=== PATIENT | male | born 1955 | race Caucasian/White ===

== ENCOUNTER 2017-10-25 11:41 | Outpatient (CLI) | payer BC ==
[~2017-10-25] VITALS: Ht 170.2 cm; Wt 87.7 kg
--- NOTE | ~2017-10-25 | HEMODYNAMI ---
PATIENT:ALY SIMPSON MEDICAL RECORD: [id number] : 51 LOCATION:LAYNE QuinonezE15- ADMISSION DATE: 10/25/17 Generatedon:10/25/201716:50 Patient name: ALY SIMPSON Patient #: [id number] SSN: : 1955 Date of study: 10/25/2017 Page: Of Hemodynamic Procedure Report Patient Data Patient Demographics Procedure consent was obtained First Name: ALY Gender: Male Last Name: TATIANA : 1955 [facility] Initial: JYOTI Age: 62 year(s) Patient #: [id number] Race: Unknown Additional ID: [id number] Contact details [address]: [address] [place] [address] State: [place] City: [place] Zip code: [address] Admission Admission Data Admission Date: 10/25/2017 Admission Time: 14:41 Room #: D.E15 Procedure Procedure Types Cath Procedure Diagnostic Procedure [facility] w/Coron[facility] FFR/IVUS Intra-Coronary IVUS Initial PCI Procedure Coronary Stent Coronary Stent Initial Procedure Description Procedure Date Procedure Date: 10/25/2017 Procedure Start Time: 16:24 Procedure End Time: 16:42 Procedure Staff Name Function Mario Monsivais MD Performing Physician Yifan Gaston RT Monitor Jonathon Layne RN Nurse Cali Armenta RT Scrub Procedure Data Cath Procedure Fluoroscopy Diagnostic fluoroscopy Total fluoroscopy Time: 4.7 time: 4.7 min min Diagnostic fluoroscopy Total fluoroscopy dose: 605 dose: 605 mGy mGy Contrast Material Contrast Material Type Amount (ml) Isovue 300 93 Entry Location Entry Primary Successful Side Size Upsize Upsize Entry Closure Mcneal ccessful Closure Location (Fr) 1 (Fr) 2 (Fr) Remarks Device Remarks Radial Right 6 Fr Manual artery Short Compression Estimated blood loss: 10 ml Diagnostic catheters Device Type Used For End Catheter Placement DIAGNOSTIC [place] 110cm 5 Procedure Fr catheter ([id number]) Procedure Complications No complications Procedure Medications Medication Administration Route Dosage Oxygen etCO2 Nasal cannula 2 l/min Lidocaine 2% added to field 20 Heparin Flush Bag added to field 2 bags (1000units/500ml NS) 0.9% NaCl I.V. 100 ml/hr Radial Cocktail I.A. 1 syringe (Verapomil 2mg/Nitro 400mcg/Heparin 1500units) Versed I.V. 2 mg Fentanyl I.V. 50 mcg Versed I.V. 1 mg Fentanyl I.V. 50 mcg Lopressor I.V. 5 mg Heparin Bolus I.V. 4000 units Integrilin (Bolus I.V. 7.9 ml 2mg/ml) Morphine I.V. 4 mg Versed I.V. 1 mg Hemodynamics Rest Heart Rate: 89 (bpm) Snapshots Pre Cath Intra NCS Post Cath Vital Signs Time Heart Resp SPO2 etCO2 NIBP (mmHg) Rhythm Pain Sedation Rate (ipm) (%) (mmHg) Status Level (bpm) 16:16:30 79 14 98 30.7 161/83(127) NSR 0 (11) 10(A) , No pain 16:21:16 87 25 97 29.2 146/86(110) NSR 0 (11) 10(A) , No pain 16:25:59 50 13 96 20.9 93/70(79) NSR 0 (11) 10(A) , No pain 16:31:54 80 14 95 26.9 127/72(90) NSR 0 (11) 9(A) , No pain 16:36:36 82 14 95 31.5 132/71(106) NSR 0 (11) 9(A) , No pain 16:41:21 71 19 98 32.9 140/74(99) NSR 7 (11) 10(A) , Very intense Medications Time Medication Route Dose Verified Delivered Reason Not es Effectiveness by by 16:14:53 Oxygen etCO2 2 l/min Mario Holt for local Nasal Yodit Layne RN anesthetic cannula 16:15:00 Lidocaine 2% added 20ml Mario Martin for local to vial Yodit Monsivais MD anesthetic field 16:15:07 Heparin Flush added 2 bags Mario Martin used for Bag to Yodit Monsivais MD procedure (1000units/500ml field NS) 16:15:15 0.9% NaCl I.V. 100 Mario Buffie Per physician ml/hr Yodit Layne RN 16:15:26 Radial Cocktail I.A. 1 Mario Mario for (Verapomil syringe Tauyoseph Monsivais MD vasodilation 2mg/Nitro 400mcg/Heparin 1500units) 16:22:16 Versed I.V. 2 mg Mario Buffie for sedation Yodit Layne RN 16:22:22 Fentanyl I.V. 50 mcg Mario Holt for sedation Yodit Layne RN 16:24:03 Versed I.V. 1 mg Mario Buffie for sedation Yodit Layne RN 16:24:07 Fentanyl I.V. 50 mcg Mario Buffie for sedation Yodit Layne RN 16:28:41 Versed I.V. 1 mg Mario Buffie for sedation Yodit Layne RN 16:30:28 Lopressor I.V. 5 mg Mario Buffie Per physician Yodit Layne RN 16:31:15 Heparin Bolus I.V. 4000 Mario Buffie for brianda ified units Yodit Layne RN anticoagulation with dr monsivais 16:33:00 Integrilin I.V. 7.9 ml Mario Holt for Was amrit (Bolus 2mg/ml) Yodit Layne RN antiplatelet 2.1 ml therapy of vial 16:43:02 Morphine I.V. 4 mg Mario Holt for chest pain Yodit Layne RN Procedure Log Time Note 15:30:09 Cali Armenta RT(R) sent for patient. Start room use. 15:35:11 Time tracking: Regular hours (M-F 7:00 - 5:00) 15:35:14 Plan of Care:Hemodynamics will remain stable., Cardiac rhythm will remain stable., Comfort level will be maintained., Respiratory function will remain adequate., Patient/ family verbilizes understanding of procedure., Procedure tolerated without complication., Recovers from procedure without complications.. 16:07:37 Patient received from Pre/Post Procedure Room to CCL 1 Alert and oriented. Tansferred to table in Supine position. 16:07:38 Warm blankets applied, and sam hugger turned on for patient comfort. 16:07:39 Correct patient and procedure confirmed by team. 16:07:40 Signed procedure consent form obtained from patient. 16:07:40 ECG and BP/O2 sat monitors applied to patient. 16:14:53 Oxygen 2 l/min etCO2 Nasal cannula was administered by Jonathon Layne RN; for local anesthetic; 16:15:00 Lidocaine 2% 20ml vial added to field was administered by Mario Monsivais MD; for local anesthetic; 16:15:07 Heparin Flush Bag (1000units/500ml NS) 2 bags added to field was administered by Mario Monsivais MD; used for procedure; 16:15:15 0.9% NaCl 100 ml/hr I.V. was administered by Jonathon Layne RN; Per physician; 16:15:26 Radial Cocktail (Verapomil 2mg/Nitro 400mcg/Heparin 1500units) 1 syringe I.A. was administered by Mario Monsivais MD; for vasodilation; 16:15:29 Vital chart was started 16:18:42 Baseline sample Acquired. 16:19:23 Rhythm: sinus rhythm 16:19:26 Full Disclosure recording started 16:19:29 H&P Date Dictated: 10/25/2017 ER History on chart.. 16:19:30 Pre-procedure instructions explained to patient. 16:19:31 Pre-op teaching completed and patient verbalized understanding. 16:19:33 Family in patients room. 16:19:34 Patient NPO since Midnight. 16:19:36 Is the patient allergic to Iodine/contrast media? No. 16:19:38 Is patient on blood thinner?Yes 16:19:40 ACC The patient was administered the following blood thiners within the last 24 hours: ACCPlavix 16:19:43 Patient diabetic? No. 16:19:46 Previous problem with sedation/anesthesia? No ? 16:19:47 Snore? Yes 16:19:48 Sleep apnea? Yes 16:19:49 Deviated septum? No 16:19:50 Opens mouth fully? Yes 16:19:50 Sticks out tongue? Yes 16:19:52 Airway obstruction? No ? 16:19:54 Dentures? No ? 16:20:02 Pre procedure: right dorsailis pedis pulse 1+ Palpable, but thready & weak; easily obliterated 16:20:05 Modified Ryan's test Ulnar < 7 seconds 16:20:06 Patient pain scale 0/10 ?. 16:20:10 IV patent on arrival in right forearm with 0.9% NaCl at [facility]. 16:20:12 Lab results completed and on chart. 16:20:28 Right Radial & Right Groin area was prepped with chlora-prep and draped in sterile fashion 16:20:30 Alarms reviewed by R. N. 16:20:30 Sharps counted by scrub and verified by R.N. 16:20:37 --------ALL STOP TIME OUT------ 16:20:38 Final Timeout: patient, procedure, and site verified with staff and physician. All members of the team are in agreement. 16:20:40 Right Radial & Right Groin site verified by team. 16:20:45 Physical assessment completed. ASA score P 2 - A patient with mild systemic disease as per Mario Monsivais MD. 16:20:48 Sedation plan: IV Moderate Sedation Medication:Versed, Fentanyl 16:22:16 Versed 2 mg I.V. was administered by Jonathon Layne RN; for sedation; 16:22:22 Fentanyl 50 mcg I.V. was administered by Jonathon Layne RN; for sedation; 16:24:03 Versed 1 mg I.V. was administered by Jonathon Layne RN; for sedation; 16:24:07 Fentanyl 50 mcg I.V. was administered by Jonathon Layne RN; for sedation; 16:24:10 Procedure started. 16:24:15 Local anesthetic to right radial artery with Lidocaine 2% by Mario Monsivais MD.INITIAL ACCESS ONLY 16:24:21 Use device set Radial Dx or PCI 16:24:23 ACIST Manifold (19292) opened to sterile field. 16:24:23 Tegaderm 4 x 4 (1626W) opened to sterile field. 16:24:24 ACIST Hand Control (99296) opened to sterile field. 16:24:25 ACIST Syringe (10361) opened to sterile field. 16:24:26 Medline Cath Pack ([id number]) opened to sterile field. 16:24:26 Bag Decanter (2002) opened to sterile field. 16:24:26 DIAGNOSTIC WIRE .035 260cm J wire (976079) opened to sterile field. 16:24:27 MBrace Wrist Support (106423884) opened to sterile field. 16:24:28 SHEATH 6Fr Prelude Radial ([id number]) opened to sterile field. 16:24:38 A 6 Fr Short sheath was inserted into the Right Radial artery 16:25:00 A DIAGNOSTIC [place]iqu[place] 110cm 5 Fr catheter (864519) was advanced over the wire and used for Procedure. 16::27 LV angiography performed. 16::28 LV gram done using FERRER 16:26:33 EF : 60 % 16::43 Injector settings: Ml/sec: 7, Volume: 15, 16:26:49 RCA angiography performed. 16::32 Catheter exchanged over wire. 16::40 Use device set YODIT PCI 16:27:50 GUIDE 6FR EBU 3.5 catheter ([id number]) opened to sterile field. 16:28:09 6 Fr EBU 3.5 guide catheter was inserted over the wire 16:28:41 Versed 1 mg I.V. was administered by Jonathon Layne RN; for sedation; 16:29:09 LCA angiography performed. 16:29:39 INFLATOR Merit BasixCompak (CI2909) opened to sterile field. 16:29:45 CHOICE PT Extra Support 182cm wire ([id number]) opened to sterile field. 16:30:03 [place] Eagleye IVUS Catheter (82882S) opened to sterile field. 16:30:28 Lopressor 5 mg I.V. was administered by Jonathon Layne RN; Per physician; 16:30:45 Choice PT XS wire advanced. 16:31:15 Heparin Bolus 4000 units I.V. was administered by Jonathon Layne RN; for anticoagulation; verified with dr monsivais 16:32:33 Wire advanced across lesion. 16:32:48 IVUS catheter advanced over wire. 16:33:00 Integrilin (Bolus 2mg/ml) 7.9 ml I.V. was administered by Jonathon Layne RN; for antiplatelet therapy; Wasted 2.1 ml of vial 16:35:12 IVUS pass to LAD lesion performed. 16:35:13 IVUS catheter removed over wire. 16:35:23 Place stent Inflation Number: 1 A CLIVE RX 3.5 x 22 stent ([id number]) was prepped and advanced across the Prox LAD. The stent was deployed at 17 KALEB for 0:10 (min:sec). 16:36:04 TR BAND Standard ([id number]) opened to sterile field. 16:37:17 Stent catheter was removed intact over wire. 16:37:19 Wire removed. 16:37:20 Guide catheter removed. 16:37:37 Sheath removed intact; hemostasis achieved with Manual Compression to the Right Radial artery. 16:37:39 Procedure ended.(Physican Out) 16:39:29 Fluoroscopy time 04.70 minutes. 16:39:32 Fluoroscopy dose: 605 mGy 16:39:32 Flurop Dose total: 605 16:39:37 Contrast amount:Isovue 300 93ml. 16:39:38 Sharps counted by scrub and verified by R.N. 16:39:40 TR band inflated with 13cc of air. 16:39:41 Insertion/operative site no bleeding no hematoma. 16:39:43 Post Procedure Pulses reassessed and unchanged 16:39:46 Post-procedure physical assessment completed. ASA score P 2 - A patient with mild systemic disease as per Mario Monsivais MD. 16:39:48 Post procedure rhythm: unchanged. 16:39:51 Estimated blood loss: 10 ml 16:39:53 Post procedure instruction explained to patient.Patient verbalizes understanding. 16:39:53 Patient needs reinforcement of post procedure teaching. 16:40:04 Procedure type changed to Cath procedure, Diagnostic procedure, LHC, LHC w/Coronaries, FFR/IVUS, Intra-Coronary IVUS Initial, PCI procedure, Coronary Stent, Coronary Stent Initial 16:40:11 Procedure and supply charges have been captured, reviewed, submitted and are correct. 16:40:13 Procedure Complication : No complications 16:41:51 Vital chart was stopped 16:41:52 See physician's report for complete and final results. 16:41:57 Report given to PCU. 16:42:00 Patient transfered to PCU with Bed. 16:42:03 Procedure ended. 16:42:03 Full Disclosure recording stopped 16:43:02 Morphine 4 mg I.V. was administered by Jonathon Layne RN; for chest pain; 16:44:10 End room use (Document Last) Intervention Summary Intervention Notes Time ActionType Lesion and Equipment Used Action# Pressure Duration Attributes 16:35:[address] Place stent Prox LAD CLIVE RX 3.5 x 1 17 00:10 22 stent ([id number]) Device Usage Item Name Manufacture Quantity Catalog Number Hospital Part Current Minimal Lot# / Charge Number Stock Stock Serial# Code ACIST Manifold Acist 1 74229 [id number] [id number] [id number] 5 (21708) Medical [employer] Inc Tegaderm 4 x 4 3M 1 1626W 853325 824144 115746 5 (1626W) ACIST Hand Acist 1 37619 667912 819293 888200 5 Control (24574) [employer] Inc ACIST Syringe Acist 1 95013 744735 828733 083669 20 (64873) Medical Systems Inc Medline Cath Cardinal 1 [id number] 423082 84854 367242 5 Pack Health ([id number]) Bag Decanter Microtek 1 2001S 093229 63481 668496 5 (2001S) Medical Inc. DIAGNOSTIC WIRE St Butch 1 798512 800455 284462 441617 30 .035 260cm J wire (183802) MBrace Wrist Advanced 1 140-0250-00 806263 82882 609538 5 Support Vascular ([id number]) Dynamics SHEATH 6Fr Merit 1 [id number] 152069 466587 973150 5 Prelude Radial Medical ([id number]) GUIDE 6FR EBU Medtronic 1 [id number] 185886 21281 025537 3 3.5 catheter ([id number]) INFLATOR Merit Merit 1 OR0691 564479 296438 944692 15 AMGas (JW8121) CHOICE PT Extra Hatch 1 [id number] 097456 297376 744343 5 Support 182cm Scientific wire ([id number]) Norwalk Norwalk 1 [id number] 034401 609843 215673 8 [place] Eagleye IVUS Catheter (40478I) CLIVE RX 3.5 x Medtronic 1 [id number] 955963 6107158 812878 5 [id number] 22 stent ([id number]) TR BAND Terumo 1 [id number] 931084 448620 742550 40 Standard ([id number]) DIAGNOSTIC Terumo 1 40-2428 805644 923812 875919 5 Piqua 110cm 5 Fr catheter (014335) Signature Audit [place] Stage Time Signature Unsigned Intra-Procedure 10/25/2017 Yifan Gaston 4:50:15 PM RT(R) Signatures Monitor : Yifan Gaston RT Signature : Date : Time : [address] [place] [address]
--- NOTE | ~2017-10-25 | OP ---
PATIENT NAME: ALY SIMPSON MEDICAL RECORD: [id number] :51 LOCATION:LITO QuinonezCL02 ADMISSION DATE:10/25/17 SURGEON: ANDERS SEO MD DATE OF OPERATION: 10/26/2017 PROCEDURES: 1. PTCA stent left circumflex. 2. Intravascular ultrasound. 3. Selective coronary angiography. INDICATION: Angina and coronary artery disease. PROCEDURE IN DETAIL: After informed consent was obtained and after a detailed description of the risks, benefits as well as alternative therapies, the patient elected to proceed with angiogram and angioplasty. The right femoral area was prepped and draped in normal sterile fashion. The right femoral artery was cannulated via modified Seldinger technique with placement of a 7-Tuvaluan sheath. All catheters exchanged through this sheath. FINDINGS: The left circumflex has greater than 70% stenosis confirmed by intravascular ultrasound. This is all through the mid vessel. This was addressed with a 3.0 x 12 and 2.5 x 12 both [place] stents. Result was 0% residual stenosis. OVERALL IMPRESSION: Successful percutaneous transluminal coronary angioplasty stent of the left circumflex going from greater than 70% initial stenosis to 0% residual. TRANSINT:[id number] Voice Confirmation ID: [id number] DOCUMENT ID: [id number] ANDERS SEO MD at 1752 CC: [id number] DICTATION DATE: 10/26/17923 MILK TREATER: 10/26/17 1149 DIS IN 10/26/17 [facility] [address] [place] [address]
--- NOTE | ~2017-10-25 | CN ---
PATIENT NAME:ALY SIMPSON MEDICAL RECORD: [id number] : 51 LOCATION:MIHAICL02 ADMIT DATE: 10/25/17 ACCOUNT: [id number] CONSULTING PHYSICIAN: ANDERS SEO MD REFERRING PHYSICIAN: NEDA ARGUELLO MD DATE OF CONSULTATION: 10/25/2017 DIAGNOSES: 1. Chest pain compatible with angina. 2. Shortness of breath. 3. Hypertension. HISTORY: This is a gentleman with no previous history of ischemic heart disease, who, during his daily walks, has been having chest tightness as well as shortness of breath. This has progressed over the past month to the point now where he cannot do his walks with any minimal exertion. He gets chest tightness, very typical anginal tightness with radiation to his jaw and his arms. REVIEW OF SYSTEMS: The patient reports easy bruising but reports no swollen glands. The patient reports no fever, no night sweats, no significant weight gain, no significant weight loss. No significant exercise tolerance. The patient reports no dry eyes, no irritation, no vision change. Patient reports no difficulty hearing and no ear pain. Patient reports no frequent nose bleeds or nose and sinus problems. Patient reports on arm pain on exertion. No shortness of breath while lying down. No history of heart murmur. Patient reports no cough, no wheezing or coughing up blood. Patient reports no abdominal pain, no vomiting. Normal appetite. No diarrhea and not vomiting blood. No nausea and no constipation. Patient reports no incontinence. No difficulty urinating. No hematuria. No increased frequency. Patient reports no muscle aches. No weakness, no arthralgias, no back pain. No swelling of the extremities. Patient reports no abnormal mole, no jaundice, no rashes. Reports no loss of consciousness. No weakness and no numbness. No seizures, dizziness, or headaches. The patient reports no depression, no sleep disturbance, feeling safe in a relationship and no alcohol abuse. Patient reports on fatigue. Reports no runny nose or sinus pressure. No itching, no hives, and no frequent sneezing. PHYSICAL EXAMINATION: GENERAL APPEARANCE: Well-nourished, well-developed, appears stated age. Level of distress, comfortable. PSYCHIATRIC: Mental status, alert, normal affect. Orientation, oriented to time, place and person. EYES: Lids and conjunctiva, noninjected. No discharge, no pallor. ENT: Lips, teeth, gums, normal dentition. Oropharynx, no cyanosis, no pallor. NECK: Carotid arteries, bilateral normal upstroke, no bruits, no thrills. JUGULAR VEINS: No jugular venous pressure or distention. CERVICAL LYMPH NODES: Nontender, nonenlarged. THYROID: Not enlarged. Nontender. No nodules. LUNGS: Respiratory effort, unlabored. CHEST: Normal curvature. No thoracic deformity. No chest wall tenderness. Percussion, resonant. Auscultation, clear. No wheezes, no rales, no rhonchi. CARDIOVASCULAR: Precordial exam, nondisplaced. No heaves or pericardial thrills. Rate and rhythm, regular. Heart sounds, normal S1, normal S2. No S3, no gallop, no rub. Systolic murmur, not heard. Diastolic murmur, not heard. CONSULT REPORT [id number] ALY SIMPSON JYOTI EXTREMITIES: No cyanosis, no edema. Peripheral pulses, full and equal in all extremities, except as noted. No bruits appreciated. ABDOMEN: Soft, nondistended. Normal aorta. No bruit. Nontender. No masses. Liver, nontender, no hepatomegaly. Spleen, nontender, no splenomegaly. MUSCULOSKELETAL: No joint tenderness. No joint swelling. No erythema. NEUROLOGICAL: Normal gait, normal strength, normal tone. SKIN: Warm and dry. OVERALL IMPRESSION: Worsening anginal symptomatology, most likely has ischemic heart disease. We will proceed with coronary angiography. Further care depends upon findings of the angiography. TRANSINT:[id number] Voice Confirmation ID: [id number] DOCUMENT ID: [id number] ANDERS SEO MD at 1752 CC: [id number] DICTATION DATE: 10/25/17 1510 HOUSEKEEPER NANNY: 10/25/17 1825 DIS IN 10/26/17 [facility] [id number] [place] [address]
--- NOTE | ~2017-10-25 | OP ---
PATIENT NAME: ALY SIMPSON MEDICAL RECORD: [id number] :51 LOCATION:LITO QuinonezCL02 ADMISSION DATE:10/25/17 SURGEON: ANDERS SEO MD DATE OF OPERATION: 10/25/2017 PROCEDURES: 1. PTCA stent to LAD. 2. Intravascular ultrasound. 3. Left heart catheterization. 4. Selective coronary angiography. 5. Left ventriculogram. INDICATION: Angina and coronary artery disease. PROCEDURE PERFORMED: After informed consent was obtained and after a detailed description of risks, benefits as well as alternative therapies, the patient elected to proceed with angiogram and angioplasty. The right radial area was prepped and draped in normal sterile fashion. Right radial artery was cannulated via modified Seldinger technique with placement of 6-Romansh sheath. All catheters exchanged through this sheath. FINDINGS: The ventriculogram was performed in standard 30-degree FERRER view, reveals good cardiac wall motion throughout all segments. Overall ejection fraction estimated 60%. SELECTIVE CORONARY ANGIOGRAPHY: 1. Left main is with no significant angiographic disease. 2. Left anterior descending has a long area of 80% stenosis confirmed by intravascular ultrasound in the proximal vessel. 3. The left circumflex has 80% stenosis in the mid vessel. 4. Right coronary has 80% stenosis in mid vessel. PTCA STENT OF THE LAD: The stent used was a 3.5 x 22-mm Joby. Result was 0% residual stenosis. OVERALL IMPRESSION: Successful percutaneous transluminal coronary angioplasty stent of the left anterior descending from 80% initial stenosis to 0% residual. PLAN: PTCA stent of the RCA and left circumflex in the near future. TRANSINT:[id number] Voice Confirmation ID: [id number] DOCUMENT ID: [id number] ANDERS SEO MD at 1759 CC: NEDA ARGUELLO [id number] DICTATION DATE: 10/25/17 1642 CATTLE SORTER: 10/25/171922 DIS IN 10/26/17 [facility] [address] [place] [id number]
--- NOTE | ~2017-10-25 | HEMODYNAMI ---
PATIENT:ALY SIMPSON MEDICAL RECORD: [id number] : 51 LOC[id number] ADMISSION DATE: 10/25/17 Generatedon:10/26/20179:25 Patient name: ALY SIMPSON Patient #: [id number] SSN: : 1955 Date of study: 10/26/2017 Page: Of Hemodynamic Procedure Report Patient Data Patient Demographics Procedure consent was obtained First Name: ALY Gender: Male Last Name: TATIANA : 1955 [facility] Initial: JYOTI Age: 62 year(s) Patient #: [id number] Race: Unknown Additional ID: [id number] Contact details Address: [facility] [address] State: [place] City: [place] Zip code: [address] Admission Admission Data Admission Date: 10/25/2017 Admission Time: 14:41 Room #: D.2131 Height (in.): 66.93 BSA: 1.98 (m2) Height (cm.): 170 BMI: 30.1 (kg/m2) Weight (lbs.): 191.8 Weight (kg.): 87 Lab Results Lab Result Date: 10/26/2017 Lab Result Time: 0:00 Biochemistry Name Units Result Min Max BUN mg/dl 14 --(--*-)-- 7 18 Creatinine mg/dl 1.2 --(---*)-- 0.6 1.3 CBC Name Units Result Min Max Hemoglobin g/dl 17.1 --(---*)-- 13.5 17.5 Procedure Procedure Types Cath Procedure Diagnostic Procedure FFR/IVUS Intra-Coronary IVUS Initial PCI Procedure Coronary Stent Coronary Stent Initial Procedure Description Procedure Date Procedure Date: 10/26/2017 Procedure Start Time: 8:54 Procedure End Time: 9:22 Procedure Staff Name Function Mario Monsivais MD Performing Physician Gt Alvarado RN Department Assistant Denise Anderson RT Monitor Gt Alvarado RN Nurse Gonzalo Núñez RT Scrub Procedure Data Cath Procedure Fluoroscopy Diagnostic fluoroscopy Total fluoroscopy Time: 11 time: 11 min min Diagnostic fluoroscopy Total fluoroscopy dose: 606 dose: 606 mGy mGy Contrast Material Contrast Material Type Amount (ml) Isovue 300 93 Entry Location Entry Primary Successful Side Size Upsize Upsize Entry Closure Succes sful Closure Location (Fr) 1 (Fr) 2 (Fr) Remarks Device Remarks Femoral Right 7 Fr Exoseal artery Short Estimated blood loss: 10 ml Procedure Complications No complications Procedure Medications Medication Administration Route Dosage Oxygen etCO2 Nasal cannula 2 l/min Heparin Flush Bag added to field 2 bags (1000units/500ml NS) 0.9% NaCl I.V. 100 ml/hr Plavix P.O. 75 mg Fentanyl I.V. 50 mcg Versed I.V. 1 mg Fentanyl I.V. 50 mcg Versed I.V. 1 mg Heparin Bolus I.V. 4000 units Fentanyl I.V. 50 mcg Fentanyl I.V. 50 mcg Hemodynamics Rest BSA: 1.98 (m2) HGB: 17.1 (g/dl) O2 Consumption: Estimated: 247.65 (ml/min) O2 Co nsumption indexed: Estimated:125.08 (ml/min/m) Heart Rate: 92 (bpm) Snapshots Pre Cath Intra NCS Post Cath Vital Signs Time Heart Resp SPO2 etCO2 NIBP (mmHg) Rhythm Pain Sedation Rate (ipm) (%) (mmHg) Status Level (bpm) 8:41:24 92 17 95 27 147/64(119) NSR 0 (11) 10(A) , No pain 8:45:49 91 16 96 30 145/82(111) NSR 0 (11) 10(A) , No pain 8:50:13 97 17 96 33 146/84(112) NSR 0 (11) 9(A) , No pain 8:54:37 87 16 96 39.8 139/77(106) NSR 0 (11) 9(A) , No pain 8:58:53 83 16 95 0 122/78(97) NSR 0 (11) 9(A) , No pain 9:03:11 84 17 95 0 124/74(98) NSR 0 (11) 9(A) , No pain 9:07:25 91 16 96 12.7 125/87(115) NSR 0 (11) 9(A) , No pain 9:11:39 98 17 94 36.8 137/86(109) NSR 0 (11) 9(A) , No pain 9:16:01 99 16 94 39.8 135/81(103) NSR 0 (11) 9(A) , No pain 9:20:21 99 16 94 36.7 145/81(108) NSR 0 (11) 9(A) , No pain Medications Time Medication Route Dose Verified Delivered Reason Notes Effectiveness by by 8:47:48 Oxygen etCO2 2 Mario Kayy Per physician Nasal l/min Yodit Alvarado RN cannula 8:47:55 Heparin Flush added 2 Mario Del Real used for Bag to bags Yodit Alvarado RN procedure (1000units/500ml field NS) 8:48:08 0.9% NaCl I.V. 100 Mario Kayy Per physician ml/hr Yodit Alvarado RN 8:48:18 Plavix P.O. 75 mg Mario Del Real for Yodit Alvarado RN antiplatelet therapy 8:48:26 Fentanyl I.V. 50 Mario Gt for sedation mcg Yodit Alvarado RN 8:48:33 Versed I.V. 1 mg Mario Del Real for sedation Yodit Alvarado RN 8:55:46 Fentanyl I.V. 50 Mario Gt for sedation mcg Yodit Alvarado RN 8:55:51 Versed I.V. 1 mg Mario Gt for sedation Yodit Alvarado RN 8:56:12 Heparin Bolus I.V. 4000 Mario Del Real for units Yodit Alvarado RN anticoagulation 9:08:38 Fentanyl I.V. 50 Mario Gt for sedation mcg Yodit Alvarado RN 9:12:41 Fentanyl I.V. 50 Mario Gt for sedation [facility] Yodit Alvarado RN Procedure Log Time Note 8:20:58 Gt Alvarado RN sent for patient. Start room use. 8:22:39 Patient Height : 66.93 inches 8:22:43 Patient Weight : 191.8 lbs 8:23:21 Lab Result : BUN 14 mg/dl 8:23:21 Lab Result : Hemoglobin 17.1 g/dl 8:23:21 Lab Result : Creatinine 1.2 mg/dl 8:23:56 Diagnostic Cath status Elective 8:23:59 Time tracking: Regular hours (M-F 7:00 - 5:00) 8:24:05 Plan of Care:Hemodynamics will remain stable., Cardiac rhythm will remain stable., Comfort level will be maintained., Respiratory function will remain adequate., Patient/ family verbilizes understanding of procedure., Procedure tolerated without complication., Recovers from procedure without complications.. 8:32:35 Patient received from Med II to CCL 3 Alert and oriented. Tansferred to table in Supine position. 8:32:37 Warm blankets applied, and sam hugger turned on for patient comfort. 8:32:38 Correct patient and procedure confirmed by team. 8:32:39 Signed procedure consent form obtained from patient. 8:32:40 ECG and BP/O2 sat monitors applied to patient. 8:40:03 Vital chart was started 8:40:04 Baseline sample Acquired. 8:40:11 Rhythm: sinus rhythm 8:40:14 Full Disclosure recording started 8:40:23 H&P Date Dictated: 10/25/2017 Within 30 days and on chart.. 8:40:26 Pre-procedure instructions explained to patient. 8:40:28 Family in waiting room. 8:40:31 Patient NPO since Midnight. 8:40:57 Is the patient allergic to Iodine/contrast media? No. 8:45:14 Is patient on blood thinner?Yes 8:45:18 ACC The patient was administered the following blood thiners within the last 24 hours: ACCPlavix 8:45:20 Patient diabetic? No. 8:45:23 Snore? Yes 8:45:25 Sleep apnea? Yes 8:45:31 Dentures? No ? 8:45:36 Patient pain scale 0/10 ?. 8:45:43 IV patent on arrival in right antecubital with 0.9% NaCl at [facility]. 8:45:53 Lab results completed and on chart. 8:46:01 Right groin area was prepped with chlora-prep and draped in sterile fashion 8:46:02 Alarms reviewed by R. N. 8:46:02 Sharps counted by scrub and verified by R.N. 8:46:04 Physician paged 8:46:05 Physician arrived 8:46:06 --------ALL STOP TIME OUT------ 8:46:07 Final Timeout: patient, procedure, and site verified with staff and physician. All members of the team are in agreement. 8:46:09 Right groin site verified by team. 8:46:13 Physical assessment completed. ASA score P 2 - A patient with mild systemic disease as per Mario Monsivais MD. 8:46:17 Sedation plan: IV Moderate Sedation Medication:Versed, Fentanyl 8:46:21 Use device set Femoral Dx 8:46:23 ACIST Syringe (49909) opened to sterile field. 8:46:23 Bag Decanter (2002S) opened to sterile field. 8:46:24 Medline Cath Pack ([id number]) opened to sterile field. 8:46:24 DIAGNOSTIC WIRE .035 260cm J wire (655149) opened to sterile field. 8:46:25 ACIST Hand Control (79142) opened to sterile field. 8:46:26 ACIST Manifold (37422) opened to sterile field. 8:46:26 DIAGNOSTIC Multipack 5Fr catheter set (QM6568) opened to sterile field. 8:46:29 Tegaderm 4 x 4 (1626W) opened to sterile field. 8:46:31 PERCUTANEOUS ENTRY 19GA needle opened to sterile field. 8:46:45 SHEATH 7FR Amelia (AKR337) opened to sterile field. 8:46:53 INFLATOR Merit BasixCompak (HK1061) opened to sterile field. 8:47:48 Oxygen 2 l/min etCO2 Nasal cannula was administered by Gt Alvarado RN; Per physician; 8:47:55 Heparin Flush Bag (1000units/500ml NS) 2 bags added to field was administered by Gt Alvarado RN; used for procedure; 8:48:08 0.9% NaCl 100 ml/hr I.V. was administered by Gt Alvarado RN; Per physician; 8:48:18 Plavix 75 mg P.O. was administered by Gt Alvarado RN; for antiplatelet therapy; 8:48:26 Fentanyl 50 mcg I.V. was administered by Gt Alvarado RN; for sedation; 8:48:33 Versed 1 mg I.V. was administered by Gt Alvarado RN; for sedation; 8:51:28 Zero performed for pressure channel P1 8:52:28 CHOICE PT Extra Support 182cm wire ([id number]) opened to sterile field. 8:52:29 Garrard [employer] IVUS Catheter (57021Z) opened to sterile field. 8:52:30 GUIDE 6FR EBU 3.5 catheter ([id number]) opened to sterile field. 8:52:31 GUIDE 7FR AR 2.0 SH catheter ([id number]) opened to sterile field. 8:52:57 Procedure started. 8:54:17 Local anesthetic to right femoral artery with Lidocaine 2% by Mario Monsivais MD.INITIAL ACCESS ONLY 8:54:29 A 7 Fr Short sheath was inserted into the Right Femoral artery 8:55:00 7 Fr EBU guide catheter was inserted over the wire 8:55:08 6 Fr EBU 3.5 guide catheter was inserted over the wire 8:55:18 choice pt wire advanced. 8:55:46 Fentanyl 50 mcg I.V. was administered by Gt Alvarado RN; for sedation; 8:55:51 Versed 1 mg I.V. was administered by Gt Alvarado RN; for sedation; 8:56:12 Heparin Bolus 4000 units I.V. was administered by Gt Alvarado RN; for anticoagulation; 9:02:00 Unable to cross 9:02:21 GUIDE 6FR EBU 4.0 guide catheter ([id number]) opened to sterile field. 9:02:32 6 Fr EBU4 guide catheter was inserted over the wire 9:02:51 whis[per wire advanced. 9:03:00 WHISPER 300cm guide wire ([id number]) opened to sterile field. 9:03:21 SuperCross Microcatheter 90 angle (5304) opened to sterile field. 9:03:37 supercross wire advanced. 9:03:45 whisper wire advanced. 9:08:38 Fentanyl 50 mcg I.V. was administered by Gt Alvarado RN; for sedation; 9:10:25 IVUS catheter advanced over wire. 9:12:37 IVUS catheter removed over wire. 9:12:41 Fentanyl 50 mcg I.V. was administered by Gt Alvarado RN; for sedation; 9:15:23 Place stent Inflation Number: 1 A CLIVE RX 3.0 x 12 stent ([id number]) was prepped and advanced across the Mid CX. The stent was deployed at 13 KALEB for 0:07 (min:sec). 9:16:01 Stent catheter was removed intact over wire. 9:18:24 Place stent Inflation Number: 1 A CLIVE OTW 2.5 x 12 stent ([id number]) was prepped and advanced across the Mid CX1. The stent was deployed at 13 KALEB for 0:05 (min:sec). 9:18:55 EXOSEAL 7Fr (EX700) opened to sterile field. 9:18:59 Wire removed. 9:18:59 Guide catheter removed. 9:19:09 Sheath removed intact; hemostasis achieved with Exoseal to the Right Femoral artery. 9:19:13 Procedure ended.(Physican Out) 9:19:28 Fluoroscopy time 11.00 minutes. 9:19:33 Fluoroscopy dose: 606 mGy 9:19:33 Flurop Dose total: 606 9:19:38 Contrast amount:Isovue 300 93ml. 9:19:39 Sharps counted by scrub and verified by R.N. 9:19:42 Insertion/operative site no bleeding no hematoma. 9:19:46 Post-op/insertion site Right Femoral artery dressed using a 4 x 4 and Tegaderm. 9:20:52 Post Procedure Pulses reassessed and unchanged 9:21:01 Estimated blood loss: 10 ml 9:21:03 Post procedure instruction explained to patient.Patient verbalizes understanding. 9:21:26 Procedure type changed to Cath procedure, Diagnostic procedure, FFR/IVUS, Intra-Coronary IVUS Initial, PCI procedure, Coronary Stent, Coronary Stent Initial 9::27 Procedure and supply charges have been captured, reviewed, submitted and are correct. 9:22:24 Procedure Complication : No complications 9:22:27 Vital chart was stopped 9:22:28 See physician's report for complete and final results. 9:22:30 Report given to Pre/Post Procedure Room. 9:22:33 Patient transfered to Pre/Post Procedure Room with Stretcher. 9:22:35 Procedure ended. 9:22:35 Full Disclosure recording stopped 9:22:38 End room use (Document Last) 9:24:19 ACC-PCI Only Patient was given prescriptions, or instructed by Mario Monsivais MD to start/continue the following medications upon discharge: Plavix Intervention Summary Intervention Notes Time ActionType Lesion and Equipment Used Action# Pressure Duration Attributes 9:15:23 Place stent Mid CX CLIVE RX 3.0 x 1 13 00:07 12 stent ([id number]) 9:18:24 Place stent Mid CX1 CLIVE OTW 2.5 x 1 13 00:05 12 stent ([id number]) Device Usage Item Name Manufacture Quantity Catalog Number Hospital Part Current M inimal Lot# / Charge Number Stock Stock Serial# Code ACIST Syringe Acist 1 67741 254206 424861 692137 2 0 (92040) Medical Systems Inc Bag Decanter Microtek 1 2001S 697553 91631 249330 5 () Medical Inc. Medline Cath Cardinal 1 [id number] 064953 13292 742916 5 Pack Health ([id number]) DIAGNOSTIC St Butch 1 815614 822702 247838 635742 3 0 WIRE .035 260cm J wire (466273) ACIST Hand Acist 1 63751 141568 421055 808319 5 Control Medical (79592) Systems Inc ACIST Manifold Acist 1 97622 950692 687031 563932 5 (03154) Medical Systems Inc DIAGNOSTIC Cardinal 1 FH3612 424223 87450 854920 3 0 Multipack 5Fr Health catheter set (BJ8461) Tegaderm 4 x 4 3M 1 1626W 099038 707506 129104 5 (1626W) PERCUTANEOUS Navman Wireless [employer] Solutions Medical 1 I20312 744304 559386 5 ENTRY 19GA needle SHEATH 7FR Terumo 1 YTH455 766802 211707 946566 5 Amelia (QGA064) INFLATOR Merit Merit 1 SW3509 885436 658689 479889 1 5 TrueInsiderilFourandhalf (RM1372) CHOICE PT [place] 1 [id number] 617456 127029 092802 5 Extra Support Scientific 182cm wire ([id number]) Garrard Garrard 1 02693W 361749 592700 876930 8 [employer] IVUS Catheter (64778D) GUIDE 6FR EBU Medtronic 1 [id number] 639546 42912 886356 3 3.5 catheter ([id number]) GUIDE 7FR AR Medtronic 1 [id number] 101027 964577 401477 0 2.0 SH catheter ([id number]) GUIDE 6FR EBU Medtronic 1 [id number] 816486 88214 799586 1 4.0 guide catheter (OF0OFJ02) WHISPER 300cm [place] 1 [id number] 335385 525232 334330 5 guide wire Vascular (8305770HO) SuperCross Vascular 1 5304 223638 821177 833518 5 Microcatheter Solutions 90 angle (5304) CLIVE RX 3.0 x Medtronic 1 [id number] 790139 3628870 470578 5 [id number] 12 stent ([id number]) CLIVE OTW 2.5 x Medtronic 1 [id number] 198384 99073 936402 5 [id number] 12 stent ([id number]) EXOSEAL 7Fr Cardinal 1 EX700 319545 800547 461249 5 (EX700) Health Signature Audit Whitlash Stage Time Signature Unsigned Intra-Procedure 10/26/2017 Denise Anderson 9:25:04 AM RT(R) Signatures Monitor : Denise Anderson Signature : RT Date : Time : [place] [id number] [place] [address]
[~2017-10-25 11:41] MED LIST: ACCUPRIL20 MG PO; ALEVE220 MG PO; BAYER CHEWABLE81 MG PO; ELIQUIS2.5 MG PO; FISH OIL 1,2001 CAP PO; FLOMAX0.4 MG PO; GLUCOSAMINE & C1 CAP PO; LIPITOR20 MG PO; PERCOCET 10/3251 TA1 PO; SUPER B COMPLE150 MG PO; ZANTAC150 MG PO
[2017-10-25 13:00] VITALS: BP 147/73
[2017-10-25 13:17] LABS: ALBUMIN 3.9 g/dL (3.4-5.0); ALKALINE PHOSPHATASE 77 U/L (46-116); ALT (SGPT) 74 U/L (10-68); BILIRUBIN - TOTAL 0.54 mg/dL (0.2-1.3); CALC OSMOLALITY 282 mosm/kg (275-300); CALCIUM 10.1 mg/dL (8.5-10.1); CARBON DIOXIDE 28.7 mmol/L (21.0-32.0); CHLORIDE - SERUM 103 mmol/L (98-107); CREATININE - SERUM 1.2 mg/dL (0.6-1.3); GLUCOSE 108 mg/dL (74-106); POTASSIUM - SERUM 4.1 mmol/L (3.5-5.1); PROTEIN - SERUM 7.8 g/dL (6.4-8.2); SODIUM 141 mmol/L (136-145); UREA NITROGEN 14 mg/dL (7-18); eGFR NON AFRICAN AMERICAN 65 mL/min (90-120)
[2017-10-25 13:19] LABS: APPEARANCE CLEAR (CLEAR); BILIRUBIN NEGATIVE (NEGATIVE); COLOR YELLOW (YELLOW); GLUCOSE NEGATIVE (NEGATIVE); KETONE NEGATIVE (NEGATIVE); NITRITE NEGATIVE (NEGATIVE); PROTEIN NEGATIVE (NEGATIVE); SPECIFIC GRAVITY 1.005 (1.005-1.020); UROBILINOGEN NORMAL (NORMAL)
[2017-10-25 13:20] LABS: BASOPHILS 0.4 % (0-2); EOSINOPHILS 0.9 % (0-7); HEMATOCRIT 48.9 % (42.0-54.0); HEMOGLOBIN 17.1 g/dL (13.5-17.5); IMMATURE GRANULOCYTES 0.2 % (0-5); LYMPHOCYTES 16.6 % (15-50); MCH 31.5 pg (26.0-34.0); MCV 90.1 fL (80.0-100.0); MEAN PLATELET VOLUME 10.2 fL (7.4-10.4); MONOCYTES 7.3 % (2-11); NEUTROPHILS 74.6 % (40-80); PLATELET COUNT 194 10x3/uL (130-400); RBC 5.43 10x6/uL (4.20-6.10); RDW 13.2 % (11.5-14.5); WBC 10.4 10x3/uL (4.8-10.8)
[2017-10-25 13:25] LABS: TROPONIN-I < 0.017 ng/mL (0.000-0.060)
[2017-10-25 14:00] VITALS: BP 158/93
[2017-10-25 15:00] VITALS: BP 141/75
[2017-10-25 18:17] VITALS: BP 126/72; Ht 170.2 cm; Wt 87.7 kg
[2017-10-25 21:27] VITALS: BP 129/68
[2017-10-26 02:11] VITALS: BP 135/79
[2017-10-26 04:00] VITALS: BP 125/73
[2017-10-26 08:39] VITALS: BP 125/63
[2017-10-26] MEDS ORDERED: PLAVIX75 MG PO (09:57)
== END 2017-10-26 13:30 | disposition home or self-care (01) ==
LOC: OBSVTIME → D.OPS 11:41 → D.CATH 11:41 → D.ER 11:41 → EDSTATUS 11:45 → D.M2 14:41 → D.EDHOLD 14:41 → D.ER 14:41 → OBSVTIME 14:41 → D.CLR 14:41 → D.EDHOLD 14:41 → D.ER 16:00 → D.CLR 16:50 → D.EDHOLD 16:50 → D.M2 17:25 → D.CLR 17:25 → D.M2 10-26 10:05 → D.CLR 10-26 10:18 → D.M2 10-26 10:18 → D.CLR 10-26 13:30 → D.OPS 10-26 13:30
PROVIDERS: Family Medicine
DX: I25.119 Atherosclerotic heart disease of native coronary artery with unspecified angina pectoris (principal); I10 Essential (primary) hypertension; E78.5 Hyperlipidemia, unspecified; R06.02 Shortness of breath; Z01.812 Encounter for preprocedural laboratory examination

== ENCOUNTER 2017-10-29 08:21 | Outpatient (CLI) | payer BC ==
[~2017-10-29] VITALS: Ht 170.2 cm; Wt 87.7 kg
--- NOTE | ~2017-10-29 | HEMODYNAMI ---
PATIENT:ALY SIMPSON MEDICAL RECORD: [id number] : 51 LOCATION:DReneeCAT ADMISSION DATE: 10/29/17 Generatedon:10/29/201711:36 Patient name: ALY SIMPSON Patient #: [id number] SSN: : 1955 Date of study: 10/29/2017 Page: Of Hemodynamic Procedure Report Patient Data Patient Demographics Procedure consent was obtained First Name: ALY Gender: Male Last Name: TATIANA : 1955 [facility] Initial: JYOTI Age: 62 year(s) Patient #: [id number] Race: Additional ID: [id number] Contact details Address: [address] [place] [address] State: [place] City: [place] Zip code: [address] Admission Admission Data Admission Date: 10/29/2017 Admission Time: 8:21 Lab Results Lab Result Date: 10/26/2017 Lab Result Time: 0:00 Biochemistry Name Units Result Min Max BUN mg/dl 14 --(--*-)-- 7 18 Creatinine mg/dl 1.2 --(---*)-- 0.6 1.3 CBC Name Units Result Min Max Hemoglobin g/dl 17.1 --(---*)-- 13.5 17.5 Procedure Procedure Types Cath Procedure PCI Procedure Procedure Description Procedure Date Procedure Date: 10/29/2017 Procedure Start Time: 11:20 Procedure End Time: 11:35 Procedure Staff Name Function Mario Monsivais MD Performing Physician Anirudh Salcido RT Monitor Kamila Shin RT Scrub Gt Alvarado RN Nurse Procedure Data Cath Procedure Fluoroscopy Diagnostic fluoroscopy Total fluoroscopy Time: 2.8 time: 2.8 min min Diagnostic fluoroscopy Total fluoroscopy dose: 286 dose: 286 mGy mGy Contrast Material Contrast Material Type Amount (ml) Isovue 300 73 Entry Location Entry Primary Successful Side Size Upsize Upsize Entry Closure Succes sful Closure Location (Fr) 1 (Fr) 2 (Fr) Remarks Device Remarks Femoral Left 7 Fr Exoseal artery Short Procedure Complications No complications Procedure Medications Medication Administration Route Dosage Oxygen etCO2 Nasal cannula 2 l/min Heparin Flush Bag added to field 2 bags (1000units/500ml NS) 0.9% NaCl I.V. 100 ml/hr Fentanyl I.V. 50 mcg Versed I.V. 1 mg Fentanyl I.V. 50 mcg Versed I.V. 1 mg Heparin Bolus I.V. 4000 units Fentanyl I.V. 50 mcg Lopressor I.V. 5 mg Nitroglycerin IC/IA I.C. 150 mcg Nitroglycerin IC/IA I.C. 50 mcg Hemodynamics Rest HGB: 17.1 (g/dl) Heart Rate: 101 (bpm) Snapshots Pre Cath Intra NCS Post Cath Vital Signs Time Heart Resp SPO2 etCO2 NIBP (mmHg) Rhythm Pain Sedation Rate (ipm) (%) (mmHg) Status Level (bpm) 10:56:17 93 17 95 0 112/75(97) NSR 0 (11) 10(A) , No pain 11:01:16 97 17 93 0 123/68(94) NSR 0 (11) 10(A) , No pain 11:05:26 96 16 96 30 131/80(98) NSR 0 (11) 10(A) , No pain 11:09:38 91 17 92 0 109/75(86) NSR 0 (11) 10(A) , No pain 11:13:45 95 16 90 30.8 106/71(81) NSR 0 (11) 9(A) , No pain 11:17:53 92 17 90 9.7 126/66(103) NSR 0 (11) 9(A) , No pain 11:22:05 108 17 96 26.3 121/72(96) NSR 0 (11) 9(A) , No pain 11:26:15 92 16 94 34.6 116/72(91) NSR 0 (11) 9(A) , No pain 11:30:25 94 16 95 23.3 91/69(81) NSR 0 (11) 9(A) , No pain 11:34:27 81 16 93 33.1 106/66(79) NSR 0 (11) 9(A) , No pain Medications Time Medication Route Dose Verified Delivered Reason Notes Effectiveness by by 11:04:02 Oxygen etCO2 2 Mario Del Real Per physician Nasal l/min Yodit Alvarado RN cannula 11:04:10 Heparin Flush added 2 Mario Del Real used for Bag to bags Yodit Alvarado RN procedure (1000units/500ml field NS) 11:04:19 0.9% NaCl I.V. 100 Mario Kayy Per physician ml/hr Yodit Alvarado RN 11:09:14 Fentanyl I.V. 50 Mario Kayy for sedation mcg Yodit Alvarado RN 11:09:20 Versed I.V. 1 mg Mario Kayy for sedation Yodit Alvarado RN 11:19:00 Fentanyl I.V. 50 Mario Gt for sedation mcg Yodit Alvarado RN 11:19:05 Versed I.V. 1 mg Mario Gt for sedation Yodit Alvarado RN 11:21:51 Heparin Bolus I.V. 4000 Mario Kayy for units Yodit Alvarado RN anticoagulation 11:23:05 Fentanyl I.V. 50 Mario Kayy for sedation mcg Yodit Alvarado RN 11:24:07 Lopressor I.V. 5 mg Mario Del Real Per physician Yodit Alvarado RN 11:29:45 Nitroglycerin I.C. 150 Mario Chadwickrey for IC/IA mcg Yodit Monsivais MD vasodilation 11:30:24 Nitroglycerin I.C. 50 Mario Mario for IC/IA mcg Yodit Monsivais MD vasodilation Procedure Log Time Note 10:35:46 Anirudh Suit RT(R) sent for patient. Start room use. 10:45:02 Informed consent obtained and on chart 10:45:14 Diagnostic Cath Status : Elective 10:45:47 Time tracking: Regular hours (M-F 7:00 - 5:00) 10:45:52 Plan of Care:Hemodynamics will remain stable., Cardiac rhythm will remain stable., Comfort level will be maintained., Respiratory function will remain adequate., Patient/ family verbilizes understanding of procedure., Procedure tolerated without complication., Recovers from procedure without complications.. 10:49:14 Patient received from Pre/Post Procedure Room to [facility] 2 Alert and oriented. Tansferred to table in Supine position. 10:49:15 Warm blankets applied, and sam hugger turned on for patient comfort. 10:49:15 Correct patient and procedure confirmed by team. 10:49:16 ECG and BP/O2 sat monitors applied to patient. 10:54:57 Vital chart was started 10:54:58 Baseline sample Acquired. 10:55:02 Rhythm: sinus rhythm 10:55:04 Full Disclosure recording started 10:55:08 H&P Date Dictated: 10/29/2017 Within 30 days and on chart., H&P Addendum completed by physician on day of procedure. (MUST COMPLETE FOR ALL OUTPATIENTS). 10:55:10 Pre-procedure instructions explained to patient. 10:55:10 Pre-op teaching completed and patient verbalized understanding. 10:55:12 Family in patients room. 10:55:14 Patient NPO since Midnight. 10:55:16 Is the patient allergic to Iodine/contrast media? No. 10:55:17 Was the patient premedicated? No 10:55:17 Is patient on blood thinner?Yes 10:55:22 ACC The patient was administered the following blood thiners within the last 24 hours: ACCAspirin, ACCPlavix 10:55:24 Patient diabetic? No. 10:55:27 Previous problem with sedation/anesthesia? No ? 10:55:28 Snore? Yes 10:55:29 Sleep apnea? No 10:55:30 Deviated septum? No 10:55:31 Opens mouth fully? Yes 10:55:31 Sticks out tongue? Yes 10:55:34 Airway obstruction? No ? 10:55:37 Dentures? No ? 10:55:41 Pre procedure: right dorsailis pedis pulse 2+ Normal; easily identifiable; not easily obliterated 10:55:44 Pre procedure: left dorsailis pedis pulse 2+ Normal; easily identifiable; not easily obliterated 10:55:46 Patient pain scale 0/10 ?. 10:55:52 IV patent on arrival in left forearm with 0.9% NaCl at O. 10:55:54 Lab results completed and on chart. 10:55:57 Left groin area was prepped with chlora-prep and draped in sterile fashion 10:55:58 Alarms reviewed by R. N. 10:55:58 Sharps counted by scrub and verified by R.N. 11:01:10 INFLATOR Merit BasixCompak (PE0862) opened to sterile field. 11:01:11 SHEATH 7FR [place] (DTJ455) opened to sterile field. 11:01:29 CHOICE PT Extra Support 182cm wire ([id number]) opened to sterile field. 11::33 EXOSEAL 7Fr (EX700) opened to sterile field. 11:04:02 Oxygen 2 l/min etCO2 Nasal cannula was administered by Gt Alvarado RN; Per physician; 11:04:10 Heparin Flush Bag (1000units/500ml NS) 2 bags added to field was administered by Gt Alvarado RN; used for procedure; 11::19 0.9% NaCl 100 ml/hr I.V. was administered by Gt Alvarado RN; Per physician; 11::57 Physician arrived 11::57 --------ALL STOP TIME OUT------ 11:08:58 Final Timeout: patient, procedure, and site verified with staff and physician. All members of the team are in agreement. 11:08:59 Left groin site verified by team. 11:09:02 Physical assessment completed. ASA score P 2 - A patient with mild systemic disease as per Mario Monsivais MD. 11:09:06 Sedation plan: IV Moderate Sedation Medication:Versed, Fentanyl 11::14 Fentanyl 50 mcg I.V. was administered by Gt Alvarado RN; for sedation; 11:09:20 Versed 1 mg I.V. was administered by Gt Alvarado RN; for sedation; 11:14:52 Zero performed for pressure channel P1 11:19:00 Fentanyl 50 mcg I.V. was administered by Gt Alvarado RN; for sedation; 11:19:05 Versed 1 mg I.V. was administered by Gt Alvarado RN; for sedation; 11:20:15 Procedure started. 11:20:24 Local anesthetic to left femerol artery with Lidocaine 2% by Mario Monsivais MD.INITIAL ACCESS ONLY 11:20:49 A 7 Fr Short sheath was inserted into the Left Femoral artery 11:21:02 GUIDE 7FR HS II SH catheter ([id number]) opened to sterile field. 11:21:51 Heparin Bolus 4000 units I.V. was administered by Gt Alvarado RN; for anticoagulation; 11::05 ACC Pre-intervention KENA Flow is 3. 11:22:22 7 Fr HS 2 SH guide catheter was inserted over the wire 11:22:35 CPTES wire advanced. 11:23:05 Fentanyl 50 mcg I.V. was administered by Gt Alvarado RN; for sedation; 11:24:07 Lopressor 5 mg I.V. was administered by Gt Alvarado RN; Per physician; 11:27:32 Place stent Inflation Number: 1 A CLIVE RX 3.0 x 12 stent ([id number]) was prepped and advanced across the Mid RCA. The stent was deployed at 13 KALEB for 0:14 (min:sec). 11:28:26 Stent catheter was removed intact over wire. 11::46 Place stent Inflation Number: 2 A CLIVE RX 3.0 x 12 stent ([id number]) was prepped and advanced across the Mid RCA. The stent was deployed at 13 KALEB for 0:09 (min:sec). 11:28:48 Stent catheter was removed intact over wire. 11::49 Wire removed. 11:29:45 Nitroglycerin IC/IA 150 mcg I.C. was administered by Mario Monsivais MD; for vasodilation; 11:30:24 Nitroglycerin IC/IA 50 mcg I.C. was administered by Mario Monsivais MD; for vasodilation; 11:30:51 Guide catheter removed. 11:30:56 Contrast amount:Isovue 300 73ml. 11:31:05 Sheath removed intact; hemostasis achieved with Exoseal to the Left Femoral artery. 11:31:08 Procedure ended.(Physican Out) 11:31:38 Fluoroscopy time 02.80 minutes. 11::44 Flurop Dose total: 286 11::44 Fluoroscopy dose: 286 mGy 11:31:45 Sharps counted by scrub and verified by R.N. 11:31:46 Insertion/operative site no bleeding no hematoma. 11:31:49 Post-op/insertion site Left Femoral artery dressed using a 4 x 4 and Tegaderm. 11:32:17 Post left femerol artery:stable 11:32:18 Post Procedure Pulses reassessed and unchanged 11:32:25 Post procedure: left dorsailis pedis pulse 2+ Normal; easily identifiable; not easily obliterated. 11:32:28 Post procedure rhythm: sinus rhythm 11:32:30 Post procedure instruction explained to patient.Patient verbalizes understanding. 11:32:36 Procedure and supply charges have been captured, reviewed, submitted and are correct. 11:32:42 Procedure Complication : No complications 11:33:06 ACIST Syringe (79935) opened to sterile field. 11:33:07 Bag Decanter (2002S) opened to sterile field. 11:33:09 Medline Cath Pack ([id number]) opened to sterile field. 11:33:09 DIAGNOSTIC WIRE .035 260cm J wire (533334) opened to sterile field. 11:33:11 ACIST Hand Control (94706) opened to sterile field. 11:33:12 ACIST Manifold (13300) opened to sterile field. 11:33:14 Tegaderm 4 x 4 (1626W) opened to sterile field. 11:35:28 Vital chart was stopped 11:35:29 See physician's report for complete and final results. 11:35:34 Report given to Pre/Post Procedure Room. 11:35:38 Patient transfered to Pre/Post Procedure Room with Stretcher. 11:35:40 Procedure ended. 11:35:40 Full Disclosure recording stopped 11:35:43 End room use (Document Last) Intervention Summary Intervention Notes Time ActionType Lesion and Equipment Used Action# Pressure Duration Attributes 11:27:32 Place stent Mid RCA CLIVE RX 3.0 x 1 13 00:14 12 stent ([id number]) 11:28:46 Place stent Mid RCA CLIVE RX 3.0 x 2 13 00:09 12 stent ([id number]) Device Usage Item Name Manufacture Quantity Catalog Number Hospital Part Current M inimal Lot# / Charge Number Stock Stock Serial# Code INFLATOR Merit Merit 1 [id number] [id number] 427400 1 5 Bid Nerd ([id number]) SHEATH 7FR Terumo 1 HYP591 513405 966489 648067 5 [place] ([id number]) CHOICE PT [place] 1 [id number] 186385 705883 889965 5 Extra Support Scientific 182cm wire ([id number]) EXOSEAL 7Fr Cardinal 1 EX700 420583 381169 882419 5 (EX700) Health GUIDE 7FR HS Medtronic 1 [id number] 543854 398578 355799 0 II SH catheter ([id number]) CLIVE RX 3.0 x Medtronic 2 [id number] 675695 8565350 462128 5 [id number] 12 stent [id number] ([id number]) ACIST Syringe Acist 1 28013 400502 499496 442212 2 0 (19775) Medical Systems Inc Bag Decanter Microtek 1 2001S 070580 42780 724291 5 (2001S) Medical Inc. Medline Cath Cardinal 1 [id number] 264341 48567 211923 5 [facility] ([id number]) DIAGNOSTIC St Butch 1 725620 425785 675100 455718 3 0 WIRE .035 260cm J wire (489554) ACIST Hand Acist 1 97543 138524 497421 148912 5 Control Medical (89141) Systems Inc ACIST Manifold Acist 1 95145 298005 788461 903368 5 (52712) Medical Systems Inc Tegaderm 4 x 4 3M 1 1626W 982838 536905 949664 5 (1626W) Signature Audit [place] Stage Time Signature Unsigned Intra-Procedure 10/29/2017 Kamila Shin 11:36:20 AM RT(R) Signatures Monitor : Anirudh Salcido RT Signature : Date : Time : [id number] [place] [address]
--- NOTE | ~2017-10-29 | HP ---
PATIENT: ALY SIMPSON MEDICAL RECORD: [id number] ACCOUNT: [id number] LOCATION:SONIA : 51 ADMISSION DATE: 10/29/17 HISTORY AND PHYSICAL EXAMINATION ADMITTING DIAGNOSES: 1. Angina. 2. Coronary artery disease. 3. Percutaneous transluminal coronary angioplasty stent left anterior descending and circumflex recently with significant disease of the right coronary artery. 4. Hypertension. 5. Hyperlipidemia. HISTORY OF PRESENT ILLNESS: Mr. Simpson presents with anginal symptomatology, found to have 3-vessel coronary artery disease, underwent successful PTCA stent of the LAD and circumflex, now brought back for PTCA stent of the RCA. PHYSICAL EXAMINATION: GENERAL APPEARANCE: Well-nourished, well-developed, appears stated age. Level of distress, comfortable. PSYCHIATRIC: Mental status, alert, normal affect. Orientation, oriented to time, place and person. EYES: Lids and conjunctiva, noninjected. No discharge, no pallor. ENT: Lips, teeth, gums, normal dentition. Oropharynx, no cyanosis, no pallor. NECK: Carotid arteries, bilateral normal upstroke, no bruits, no thrills. JUGULAR VEINS: No jugular venous pressure or distention. CERVICAL LYMPH NODES: Nontender, nonenlarged. THYROID: Not enlarged. Nontender. No nodules. LUNGS: Respiratory effort, unlabored. CHEST: Normal curvature. No thoracic deformity. No chest wall tenderness. Percussion, resonant. Auscultation, clear. No wheezes, no rales, no rhonchi. CARDIOVASCULAR: Precordial exam, nondisplaced. No heaves or pericardial thrills. Rate and rhythm, regular. Heart sounds, normal S1, normal S2. No S3, no gallop, no rub. Systolic murmur, not heard. Diastolic murmur, not heard. EXTREMITIES: No cyanosis, no edema. Peripheral pulses, full and equal in all extremities, except as noted. No bruits appreciated. ABDOMEN: Soft, nondistended. Normal aorta. No bruit. Nontender. No masses. Liver, nontender, no hepatomegaly. Spleen, nontender, no splenomegaly. MUSCULOSKELETAL: No joint tenderness. No joint swelling. No erythema. NEUROLOGICAL: Normal gait, normal strength, normal tone. SKIN: Warm and dry. REVIEW OF SYSTEMS: The patient reports easy bruising but reports no swollen glands. The patient reports no fever, no night sweats, no significant weight gain, no significant weight loss. No significant exercise tolerance. The patient reports no dry eyes, no irritation, no vision change. Patient reports no difficulty hearing and no ear pain. Patient reports no frequent nose bleeds or nose and sinus problems. Patient reports on arm pain on exertion. No shortness of breath while lying down. No history of heart murmur. Patient reports no cough, no wheezing or coughing up blood. Patient reports no abdominal pain, no vomiting. Normal appetite. No diarrhea and not vomiting blood. No nausea and no constipation. Patient reports no incontinence. No difficulty urinating. No hematuria. No increased frequency. Patient reports HISTORY AND PHYSICAL [id number] TATIANA,ALY JYOTI no muscle aches. No weakness, no arthralgias, no back pain. No swelling of the extremities. Patient reports no abnormal mole, no jaundice, no rashes. Reports no loss of consciousness. No weakness and no numbness. No seizures, dizziness, or headaches. The patient reports no depression, no sleep disturbance, feeling safe in a relationship and no alcohol abuse. Patient reports on fatigue. Reports no runny nose or sinus pressure. No itching, no hives, and no frequent sneezing. OVERALL IMPRESSION: Anginal symptomatology with significant disease of the RCA. Proceed with PTCA stent of the RCA. TRANSINT:[id number] Voice Confirmation ID: [id number] DOCUMENT ID: [id number] ANDERS SEO MD at 1752 CC: [id number] DICTATION DATE: 10/29/17 1002 MATCHBOOK ASSEMBLER: 10/29/17 1122 DEP CLI 10/29/17 [facility] [address] [place] [address]
--- NOTE | ~2017-10-29 | OP ---
PATIENT NAME: ALY SIMPSON MEDICAL RECORD: [id number] :51 LOCATION:D.CAT ADMISSION DATE: SURGEON: ANDERS SEO MD DATE OF OPERATION: 10/29/2017 PROCEDURES: 1. PTCA stent left circumflex. 2. Selective coronary angiography. PROCEDURE IN DETAIL: After informed consent was obtained and after a detailed description of risks, benefits as well as alternative therapies, the patient elected to proceed with angiogram and angioplasty. The left femoral area was prepped and draped in normal sterile fashion. Left femoral artery was cannulated via modified Seldinger technique with placement of 7-Guinean sheath. All catheters exchanged through this sheath. FINDINGS: The right coronary artery has multiple areas of 80% stenosis. This was addressed with a 3.0 x 12 mm [place] times 2. The result was 0% residual stenosis. OVERALL IMPRESSION: Successful percutaneous transluminal coronary angioplasty stent of the right coronary artery going from 80% initial stenosis times 2 to 0% residual. TRANSINT:[id number] Voice Confirmation ID: [id number] DOCUMENT ID: [id number] ANDERS SEO MD at 1752 CC: [id number] DICTATION DATE: 10/29/17 1136 CASKET ASSEMBLER: 10/29/17 1249 DEP CLI 10/29/[address] [address]
[~2017-10-29 08:21] MED LIST changes: +PLAVIX75 MG PO
[2017-10-29 09:13] VITALS: BP 141/80; Ht 170.2 cm; Wt 87.7 kg
[2017-10-29 09:34] LABS: ANION GAP 11.2 mmol/L (8-16); CALCIUM 9.6 mg/dL (8.5-10.1); CARBON DIOXIDE 26.1 mmol/L (21.0-32.0); CREATININE - SERUM 1.3 mg/dL (0.6-1.3)
[2017-10-29 09:35] LABS: POTASSIUM - SERUM 4.3 mmol/L (3.5-5.1)
[2017-10-29 09:53] LABS: BASOPHILS 0.2 % (0-2); EOSINOPHILS 2.1 % (0-7); HEMATOCRIT 47.7 % (42.0-54.0); HEMOGLOBIN 16.4 g/dL (13.5-17.5); IMMATURE GRANULOCYTES 0.3 % (0-5); LYMPHOCYTES 21.8 % (15-50); MCH 31.4 pg (26.0-34.0); MCHC 34.4 g/dL (31.0-37.0); MCV 91.2 fL (80.0-100.0); MEAN PLATELET VOLUME 9.9 fL (7.4-10.4); MONOCYTES 8.3 % (2-11); NEUTROPHILS 67.3 % (40-80); PLATELET COUNT 223 10x3/uL (130-400); RBC 5.23 10x6/uL (4.20-6.10); RDW 13.1 % (11.5-14.5)
== END 2017-10-29 15:35 | disposition home or self-care (01) ==
LOC: D.CATH 08:21
PROVIDERS: Internal Medicine Interventional Cardiology
DX: I25.119 Atherosclerotic heart disease of native coronary artery with unspecified angina pectoris (principal); Z95.5 Presence of coronary angioplasty implant and graft; I10 Essential (primary) hypertension; E78.5 Hyperlipidemia, unspecified; Z01.812 Encounter for preprocedural laboratory examination

== ENCOUNTER 2019-10-03 10:08 | Inpatient (IN) | payer MEDICARE, OTHER ==
[~2019-10-03] VITALS: Ht 170.2 cm; Wt 88.2 kg
--- NOTE | ~2019-10-03 | OP ---
PATIENT NAME: ALY SIMPSON MEDICAL RECORD: [id number] :51 LOCATION:D.MS [id number] ADMISSION DATE:10/03/19 SURGEON: DAISY VANG MD DATE OF OPERATION: 10/03/2019 PREOPERATIVE DIAGNOSES: Acute fracture dislocation, Lisfranc type of the patient's right foot, split divergent in nature without disruption of the Lisfranc fracture. POSTOPERATIVE DIAGNOSES: Acute fracture dislocation, Lisfranc type of the patient's right foot, split divergent in nature without disruption of the Lisfranc fracture. PROCEDURE: Open reduction internal fixation of the base of the right second metatarsal closed reduction percutaneous pinning of the lateral column. SURGEON: Daisy Vang MD RECEPTION AGENT: TIMO Walsh INTRAOPERATIVE COMPLICATIONS: None. SUMMARY OF PATHOLOGIC FINDINGS: Consistent with the patient's radiographs, the base of the second metatarsal head fractured; however, it was distal to the point of Lisfranc's ligament and not requiring Lisfranc ligament reconstruction; however, the second metatarsal base did require open reduction internal fixation as well as a transfer of the lateral column back into its position primarily the third TMT joint and it was pinned with an 0.062 K-wire. All done under fluoroscopically. SURGEON: Daisy Vang MD RECEPTION AGENT: TIMO Walsh INTRAOPERATIVE COMPLICATIONS: None. SUMMARY OF PATHOLOGIC FINDINGS: Consistent with the preoperative diagnosis, the patient had the above findings. OPERATIVE SUMMARY IN DETAIL: After obtaining the appropriate preoperative orthopedic surgery consent as well as anesthetic consultation, evaluation and clearance, the patient was brought to the operating room and placed on the operating table in a supine position. After adequate general laryngeal mask was administered, tourniquet was placed about the proximal aspect of the right lower extremity. Right lower extremity was then prepped and draped in routine sterile fashion. The leg was elevated and exsanguinated, tourniquet was inflated to 350 mmHg. At this point, the patient's unique identifiers were given and timeout was agreed upon by all. Dorsal midfoot incision was made directly over the fourth metatarsal, taken down to the level of the fracture fourth metatarsal that was grossly displaced. It was then mechanically manipulated back into an anatomic position and then 2.7 VariAx 2 plate from [employer] was then placed with good position and placement with combination of both locking and nonlocking screws were placed across the fracture itself. This resulted in good anatomic fixation in AP, lateral and oblique views. At this point, the third metatarsal was reduced realigning the entire lateral column. The third metatarsal was then OPERATIVE REPORT [id number] ALY SIMPSON reduced to the intermediate cuneiform with an 0.062 K-wire. Final radiographs were taken and submitted for radiologist review. The wound was then irrigated and closed with 2-0 Vicryl and 4-0 Prolene. Sterile dressings were applied. Posterior L&U splint was applied. Tourniquet was deflated. The patient was awakened and taken to recovery room in stable condition. All final needle and sponge counts were correct. TRANSINT:[id number] Voice Confirmation ID: [id number] DOCUMENT ID: [id number] CIERA SEYMOUR, DAISY SANDOVAL CC: [id number] DICTATION DATE: 10/10/19 1026 AUTOMOTIVE TECHNICIAN INSTRUCTOR: 10/10/19 1200 DIS IN 10/04/19 [id number] [place] [address]
[2019-10-03 11:04] LABS: ANION GAP 15.7 mmol/L (8-16); CALCIUM 10.2 mg/dL (8.5-10.1); CARBON DIOXIDE 26.3 mmol/L (21.0-32.0); CREATININE - SERUM 1.9 mg/dL (0.6-1.3)
[2019-10-03 11:11] LABS: ALBUMIN 4.1 g/dL (3.4-5.0); BILIRUBIN - TOTAL 0.67 mg/dL (0.2-1.3); PROTEIN - SERUM 7.6 g/dL (6.4-8.2)
[2019-10-03 11:18] LABS: BASOPHILS 0.5 % (0-2); EOSINOPHILS 0.9 % (0-7); HEMATOCRIT 45.6 % (42.0-54.0); HEMOGLOBIN 15.5 g/dL (13.5-17.5); IMMATURE GRANULOCYTES 0.2 % (0-5); LYMPHOCYTES 21.2 % (15-50); MCH 31.1 pg (26.0-34.0); MCV 91.6 fL (80.0-100.0); MEAN PLATELET VOLUME 10.5 fL (7.4-10.4); MONOCYTES 5.5 % (2-11); NEUTROPHILS 71.7 % (40-80); PLATELET COUNT 258 10x3/uL (130-400); RBC 4.98 10x6/uL (4.20-6.10); RDW 13.1 % (11.5-14.5); WBC 10.5 10x3/uL (4.8-10.8)
[2019-10-03 11:23] LABS: APTT 24.1 SECONDS (22.8-39.4); INR 0.92 (0.85-1.17); PROTIME 12.4 SECONDS (11.6-15.0)
[2019-10-03 12:34] VITALS: BP 135/64
[2019-10-03 12:37] LABS: BILIRUBIN NEGATIVE (NEGATIVE); GLUCOSE NEGATIVE (NEGATIVE); KETONE NEGATIVE (NEGATIVE); NITRITE NEGATIVE (NEGATIVE); UROBILINOGEN NORMAL (NORMAL)
--- NOTE | 2019-10-03 12:40 | NUR ---
PT LAYING IN BED NO DISTRESS NOTED. FAMILY AT BEDSIDE. PT PROVIDED WITH PILLOW AT THIS TIME. WILL CONTINUE TO MONITOR.
--- NOTE | 2019-10-03 15:53 | NUR ---
REPORT CALLED TO [place] AT THIS TIME.
--- NOTE | 2019-10-03 15:54 | NUR ---
REPORT GIVEN BY JOCELYN WARD. PATIENT WILL ARRIVE TO ROOM 2232.
--- NOTE | 2019-10-03 16:49 | NUR ---
TO OR VIA BED
[2019-10-03 16:54] VITALS: BP 145/62; Ht 170.2 cm; Wt 88.2 kg
[2019-10-03 18:50] VITALS: BP 112/61
--- NOTE | 2019-10-03 18:50 | NUR ---
PATIENT BACK ON UNIT FROM OR. REPORT RECIEVED FROM ISAIAH LARSEN. PATIENT FREE FROM DISTRESS.DRESSING TO LOWER RIGHT EXTREMITY CLEAN, DRY, INTACT.
[2019-10-04] VITALS: BP 117/56
[2019-10-04 07:44] LABS: HEMOGLOBIN 13.1 g/dL (13.5-17.5)
[2019-10-04 08:00] VITALS: BP 123/56
--- NOTE | 2019-10-04 09:00 | NUR ---
ASSESSMENT PER FLOW SHEET. PATIENT IS WITHOUT DISTRESS.DENIES PAIN AT PRESENT
[2019-10-04] MEDS ORDERED: HYDROCODON-ACE1 EAC7 PO (09:32)
--- NOTE | 2019-10-04 09:41 | MORECARE ---
CASE MANAGEMENT DISCHARGE SUMMARY PATIENT: ALY SIMPSON UNIT: [id number] ADM DATE: 10/03/19 AGE: 64 : 51 SEX: M ROOM/BED: D.2232 AUTHOR: BRIAN ZAMUDIO PHYSICIAN: REFERRING PHYSICIAN: NEDA ARGUELLO MD DATE OF SERVICE: 10/04/19 Discharge Plan Patient Name: ALY SIMPSON Facility: [facility]:[place] : 1955 Planned Disposition: Home Anticipated Discharge Date: Discharge Date: Expected LOS: Initial Reviewer: [email or web address] Initial Review Date: 10/03/2019 Generated: 10/04/19 10:41 am Patient Name: ALY SIMPSON Page 25555 at 0941 All edits/amendments must be made on the electronic document DICTATION DATE: 10/04/19940 FACTORY ENGINEER: NENO 10/04/19940 RPT#: [id number] DC DATE: STATUS: ADM IN [facility] [address] [place] [address] END OF REPORT
--- NOTE | 2019-10-04 09:48 | MORECARE ---
CASE MANAGEMENT DISCHARGE SUMMARY PATIENT: ALY SIMPSON UNIT: [id number] ADM DATE: 10/03/19 AGE: 64 : 51 SEX: M ROOM/BED: D.2232 AUTHOR: ROBB,DOC PHYSICIAN: REFERRING PHYSICIAN: NEDA ARGUELLO MD DATE OF SERVICE: 10/04/19 Discharge Plan Patient Name: ALY SIMPSON Facility: [facility]:[place] : 1955 Planned Disposition: Home Anticipated Discharge Date: Discharge Date: Expected LOS: Initial Reviewer: [email or web address] Initial Review Date: 10/03/2019 Generated: 10/04/19 10:48 am Comments DCP- Discharge Planning Updated by [email or web address]: Martha Prieto on 10/04/19 8:[address] Patient Name: ALY SIMPSON Admission Status: ER Accout number: [id number] Admission Date: 10-03-2019 : 1955 Admission Diagnosis: Attending: NEDA ARGUELLO Current LOS: 1 Anticipated DC Date: Planned Disposition: Home Primary Insurance: [facility] [employer] Discharge Planning Comments: CM met with patient to complete initial dc planning assessment. CM educated patient on the CM role and verbal consent given by patient to complete assessment. Patient lives at home with family. Patient is independent. At discharge patient plans to return home and feels this is a safe discharge. CM discussed availability of home health, rehab services, and medical equipment. Patient states that he does have a walker and bsc if needed. Patient asked about knee scooter CM stated that he would need an order for it when he goes to follow up appointment and he could check prices at [employer] v/s online. Patient will have family to transport home. Patient denied known discharge needs at this time. CM will continue to follow and will assist as needed with dc plans/needs. Director Ambulatory: Martha Prieto DCPIA - Discharge Planning Initial Assessment Updated by [email or web address]: Martha Prieto on 10/04/19 9:42 am * Is the patient Alert and Oriented? Yes * How many steps to enter\exit or inside your home? * PCP SAUNDRA * [facility] * Preadmission Environment Home with Family * ADLs Independent * Equipment Walker * Other Equipment BSC * List name and contact numbers for known caregivers / representatives who currently or will assist patient after discharge: KOBY SIMPSON - SPOUSE - [phone] * Verbal permission to speak to the caregivers and representatives has been obtained from the patient. Yes * Community resources currently utilized None * Additional services required to return to the preadmission environment? No * Can the patient safely return to the preadmission environment? Yes * Has this patient been hospitalized within the prior 30 days at any hospital? No Last DP export: 10/04/19 8:41 a Patient Name: ALY SIMPSON Page [id number] at 0948 All edits/amendments must be made on the electronic document DICTATION DATE: 10/04/19947 BRINEYARD SUPERVISOR: NENO 10/04/19947 RPT#: [id number] DC DATE: STATUS: ADM IN [facility] [address] [place] [address] END OF REPORT
[2019-10-04] MEDS ORDERED: ELIQUIS2.5 MG PO (10:10)
[2019-10-04] MEDS ORDERED: HYDROCODON-ACE1 EA10 PO (10:11)
--- NOTE | 2019-10-04 10:41 | NUR ---
IV DCD WITH CATH TIP INTACT. DISCHARGE INSTRUCTIONS,STATES UNDERSTANDING.
--- NOTE | 2019-10-04 10:49 | NUR ---
LEFT UNIT VIA WHEELCHAIR FOR TRANSPORT HOME
--- NOTE | 2019-10-05 18:47 | MORECARE ---
CASE MANAGEMENT DISCHARGE SUMMARY PATIENT: ALY SIMPSON UNIT: [id number] ADM DATE: 10/03/19 AGE: 64 : 51 SEX: M ROOM/BED: D.2232 AUTHOR: ROBB,DOC PHYSICIAN: REFERRING PHYSICIAN: NEDA ARGUELLO MD DATE OF SERVICE: 10/05/19 Discharge Plan Patient Name: ALY SIMPSON Facility: [facility]:[place] : 1955 Planned Disposition: Home Anticipated Discharge Date: 10/04/19 Discharge Date: 10/04/2019 Expected LOS: 1 Initial Reviewer: [email or web address] Initial Review Date: 10/03/2019 Generated: 10/05/19 7:46 pm Comments DCP- Discharge Planning Updated by [email or web address]: Martha Prieto on 10/04/19 8:[address] Patient Name: ALY SIMPSON Admission Status: ER Accout number: [id number] Admission Date: 10-03-2019 : 1955 Admission Diagnosis: Attending: NEDA ARGUELLO Current LOS: 1 Anticipated DC Date: Planned Disposition: Home Primary Insurance: [facility] MEDIC[facility] SOLUTIONS Discharge Planning Comments: CM met with patient to complete initial dc planning assessment. CM educated patient on the CM role and verbal consent given by patient to complete assessment. Patient lives at home with family. Patient is independent. At discharge patient plans to return home and feels this is a safe discharge. CM discussed availability of home health, rehab services, and medical equipment. Patient states that he does have a walker and bsc if needed. Patient asked about knee scooter CM stated that he would need an order for it when he goes to follow up appointment and he could check prices at [employer] v/s online. Patient will have family to transport home. Patient denied known discharge needs at this time. CM will continue to follow and will assist as needed with dc plans/needs. Mailer: Martha Prieto DCPIA - Discharge Planning Initial Assessment Updated by [email or web address]: Martha Prieto on 10/04/19 9:42 am * Is the patient Alert and Oriented? Yes * How many steps to enter\exit or inside your home? * PCP SAUNDRA * [facility] * Preadmission Environment Home with Family * ADLs Independent * Equipment Walker * Other Equipment BSC * List name and contact numbers for known caregivers / representatives who currently or will assist patient after discharge: KOBY SIMPSON - [facility] - [phone] * Verbal permission to speak to the caregivers and representatives has been obtained from the patient. Yes * Community resources currently utilized None * Additional services required to return to the preadmission environment? No * Can the patient safely return to the preadmission environment? Yes * Has this patient been hospitalized within the prior 30 days at any hospital? No Last DP export: 10/04/19 8:48 a Patient Name: ALY SIMPSON Page [id number] at 1847 All edits/amendments must be made on the electronic document DICTATION DATE: 10/05/191845 DIRECT MARKETING EXECUTIVE: NENO 10/05/191845 RPT#: [id number] DC DATE:10/04/19 STATUS: DIS IN [facility] [address] [place] [address] END OF REPORT
== END 2019-10-04 10:50 | disposition home or self-care (01) | DRG 505 ==
LOC: D.ER 10:08 → D.MS 13:37
PROVIDERS: Family Medicine; Orthopaedic Surgery; ADMIT Family Medicine; ATTEND Family Medicine
PROC: 0QSN04Z Reposition Right Metatarsal with Internal Fixation Device, Open Approach (ICD-10-PCS; principal; 2019-10-03 14:00)
DX: S92.321A Displaced fracture of second metatarsal bone, right foot, initial encounter for closed fracture (principal); S92.141A Displaced dome fracture of right talus, initial encounter for closed fracture; S82.61XA Displaced fracture of lateral malleolus of right fibula, initial encounter for closed fracture; W13.2XXA Fall from, out of or through roof, initial encounter; I10 Essential (primary) hypertension; K21.9 Gastro-esophageal reflux disease without esophagitis